=== PATIENT | female | born 1950 | race Caucasian/White ===

== ENCOUNTER → 2019-11-28 | Outpatient (CLI) | payer SELFPAY | LOC: M LABSMTC 10:40 | PROVIDERS: ATTEND Pediatrics | DX: Z20.828 Contact with and (suspected) exposure to other viral communicable diseases (principal) ==

== ENCOUNTER 2019-12-08 10:04 | Emergency (ER) | payer MEDICARE, SELFPAY ==
[~2019-12-08] VITALS: Ht 162.6 cm; Wt 56.7 kg
[2019-12-08] MEDS ORDERED: RABIES VACCINE HUMAN 2.5 INTERNATIONAL UNITS/ML VIAL (90675) IM ONE (11:45)
[2019-12-08] MEDS ORDERED: RABIES IMMUNE GLOBULIN 1500 INTERNATIONAL UNIT/5ML VIAL (90375) IM ONE (11:45)
[2019-12-08] MEDS ORDERED: RABIES IMMUNE GLOBULIN 300 INTERNATIONAL UNITS/1ML VIAL (90375) IM ONE (12:00)
[2019-12-08 12:18] VITALS: BP 155/89
== END 2019-12-08 12:46 | disposition home or self-care (01) ==
LOC: M ED 10:04
DX: S00.87XA Other superficial bite of other part of head, initial encounter (principal); W55.81XA Bitten by other mammals, initial encounter; Y92.009 Unspecified place in unspecified non-institutional (private) residence as the place of occurrence of the external cause; Y93.9 Activity, unspecified; Y99.9 Unspecified external cause status; Z20.3 Contact with and (suspected) exposure to rabies; Z90.13 Acquired absence of bilateral breasts and nipples

== ENCOUNTER 2019-12-11 10:07 | Emergency (ER) | payer MEDICARE ==
[~2019-12-11] VITALS: Ht 162.6 cm; Wt 57.2 kg
[2019-12-11] MEDS ORDERED: RABIES VACCINE HUMAN 2.5 INTERNATIONAL UNITS/ML VIAL (90675) IM ONE (10:30)
[2019-12-11 10:37] VITALS: BP 213/103
== END 2019-12-11 10:54 | disposition home or self-care (01) ==
LOC: M ED 10:07
DX: Z23 Encounter for immunization (principal); Z20.3 Contact with and (suspected) exposure to rabies; I10 Essential (primary) hypertension

== ENCOUNTER 2019-12-15 10:46 | Emergency (ER) | payer MEDICARE ==
[~2019-12-15] VITALS: Ht 162.6 cm; Wt 56.9 kg
[2019-12-15 11:02] VITALS: BP 145/75
[2019-12-15] MEDS ORDERED: RABIES VACCINE HUMAN 2.5 INTERNATIONAL UNITS/ML VIAL (90675) IM ONE (11:15)
== END 2019-12-15 11:34 | disposition home or self-care (01) ==
LOC: M ED 10:46
DX: Z20.3 Contact with and (suspected) exposure to rabies (principal); Z23 Encounter for immunization

== ENCOUNTER 2019-12-22 10:13 | Emergency (ER) | payer MEDICARE ==
[~2019-12-22] VITALS: Ht 162.6 cm; Wt 57.0 kg
[2019-12-22 10:13] VITALS: BP 142/70
[2019-12-22] MEDS ORDERED: RABIES VACCINE HUMAN 2.5 INTERNATIONAL UNITS/ML VIAL (90675) IM ONE (10:45)
== END 2019-12-22 11:14 | disposition home or self-care (01) ==
LOC: M ED 10:13
DX: Z20.3 Contact with and (suspected) exposure to rabies (principal); Z23 Encounter for immunization